=== PATIENT | female | born 1955 | race Caucasian/White ===

== ENCOUNTER 2023-08-31 10:15 | Outpatient (CLI) | payer MEDICARE, SELFPAY ==
--- NOTE | 2023-08-31 10:41 | ECG_ITS ---
Measurements Intervals [place] Rate: 79 P: 47 MI: 190 QRS: 17 QRSD: 90 T: 16 QT: 359 QTc: 413 Interpretive Statements SINUS RHYTHM NO PREVIOUS ECG AVAILABLE FOR COMPARISON Electronically Signed On 08-31-2023 19:56:46 CDT by Theodora Gustafson M.D.
[2023-08-31 11:47] LABS: Anion Gap 7 mmol/L (8-16); Blood Urea Nitrogen 24 mg/dL (7-17); Calcium 9.8 mg/dL (8.4-10.2); Carbon Dioxide 30 mmol/L (22-30); Chloride 101 mmol/L (98-107); Estimated Glomerular Filt Rate > 60; Glucose 118 mg/dL (65-110); Potassium 4.2 mmol/L (3.4-5.0); Sodium 138 mmol/L (137-145)
== END 2023-08-31 10:16 | disposition home or self-care (01) ==
LOC: ANHSURGERY 10:19
PROVIDERS: Anesthesiology; PCP Family Medicine; Visit Provider Urology
DX: R31.9 Hematuria, unspecified (principal); E11.9 Type 2 diabetes mellitus without complications; Z01.818 Encounter for other preprocedural examination
CPT/HCPCS: 36415; 80048; 87086; 93005

== ENCOUNTER 2023-09-07 01:50 | Day surgery (SDC) | payer MEDICARE, SELFPAY ==
[2023-08-27 09:32] VITALS: BMI 29.3
--- NOTE | 2023-08-27 09:42 | PC.NURSE ---
PRE-OP INSTRUCTIONS, PLEASE READ CAREFULLY Report to the Outpatient Waiting Room, entrance under the green pavilion located off [facility], at time _1100_ on date _09/07/23_. Planned Procedure Time: _1 PM_. Time changes happen often and if your time is changed the preop area will call you the afternoon before. - You and your visitor will be asked to self-screen and do not enter if you have any COVID symptoms. - A mask is optional within the hospital at this time. Patients may have clear liquids (water, carbonated beverages, clear teas, apple juice) until 3 hours prior to surgery (1000 AM) with a maximum of 20 ounces. - No food from midnight until time of surgery Take the following medications with a SIP of water the morning of surgery: _AMLODIPINE, LEVOTHYROXINE & 1/2 DOSE OF AM INSULIN_ DO NOT STOP ANY OF YOUR OTHER PRESCRIPTION MEDICATIONS PRIOR TO SURGERY ?EXCEPT THE FOLLOWING Medications to discontinue per DR. POE - ASPIRIN 7 DAYS PRIOR TO SURGERY (PER PATIENT), Date to take last dose 08/30/23_ Please no make-up, nail dominican, hairspray, perfume, deodorant, or body powder the day of surgery. No jewelry (including any body piercings) or valuables the day of surgery, leave them at home. Please take a shower or bath the night before, or the morning of, surgery with an antibacterial soap. Wear comfortable, loose fitting clothing. - Jewelry must be removed prior to entering the operating room. Rings and piercings that are not removed may be cut off. - The hospital will not accept responsibility for valuables. - Please leave all valuables, including medications, at home the day of surgery. If you are going home after surgery, a licensed school bus driver/mechanic must drive you home. - NO public transportation without another adult if you receive anesthesia. - We recommend that an adult stay with you for 24 hours following discharge. - We also recommend that you do not drive, make important decision, drink alcoholic beverages, or take any drugs that were not prescribed by your health care provider for at least 24 hours after your discharge time. Follow any additional instructions given to you from your surgeon. If you or anyone in your household have experienced Covid symptoms in the past week, please notify your surgeon or the nurse liaison at the phone number below for possible testing. Telephone instructions given to _PATIENT_and asked if any additional questions and then verbalized understanding. Patient advised to call surgeon office or pre surgery nurse liaison [phone] if any additional questions.
[2023-09-07] VITALS (11 sets, daily range): BP systolic 85–147; BP diastolic 50–81; PULSE 77–96; RESP 16–23; TEMP 36.7–36.9; O2SAT 89–100
--- NOTE | 2023-09-07 11:09 | WPDHPUPDATE1 ---
History and Physical Update Update Date/Time: 09/07/23 11:09 History and Physical has been reviewed, including an updated exam of the patient. There are NO changes in the patient's condition. Risks, benefits, and alternatives have been discussed and questions answered. Patient agrees to proceed with procedure. Proceed with cystoscopy with bladder biopsy and fulguration
[2023-09-07 11:52] LABS: Glucose Point of Care 144 mg/dl (65-105)
--- NOTE | 2023-09-07 12:54 | WPDANESEPPF ---
Anes - Initial Pre Proc Eval Procedure: Operation Date: 09/07/23 13:00 Proposed Procedures p Cystoscopy Bladder Biopsy - Arcenio Ham MD Date/Time: 09/07/23 12:54 Surgeon: Arcenio Ham MD Pre Op Diagnosis: hematuria, bladder Patient Data Age: 67 Gender: F Height: 1.55 m Weight: 71 kg Last Vital Signs Temp 36.7 C 09/07/23 11:54 Pulse 87 09/07/23 11:54 Resp 16 09/07/23 11:54 BP 141/59 H 09/07/23 11:54 Pulse Ox 100 09/07/23 11:54 O2 Del Method Room Air 09/07/23 11:54 Allergies Allergy/AdvReac Type Severity Reaction Status Date / Time No Known Allergies Allergy Verified 09/07/23 11:52 Home Medications Medication Instructions Recorded Confirmed Type amlodipine 5 mg tablet 5 mg DAILY 08/27/23 09/07/23 History aspirin 81 mg tablet,delayed 81 mg PO DAILY 08/27/23 08/27/23 History release cholecalciferol (vitamin D3) 1 tab-cap DAILY 08/27/23 08/27/23 History cyanocobalamin (vitamin B-12) 1,000 mcg PO DAILY 08/27/23 08/27/23 History 1,000 mcg tablet enalapril maleate 20 mg tablet 20 mg PO DAILY 08/27/23 08/27/23 History esomeprazole magnesium 20 mg 20 mg PO DAILY 08/27/23 08/27/23 History capsule,delayed release (Nexium) hydrochlorothiazide 25 mg tablet 25 mg 3XW 08/27/23 08/27/23 History insulin detemir U-100 100 unit/mL 30 unit subcut BID 08/27/23 09/07/23 History (3 mL) subcutaneous pen (Levemir FlexPen) levothyroxine 112 mcg tablet 112 mcg DAILY 08/27/23 09/07/23 History metformin 1,000 mg tablet 1,000 mg BID 08/27/23 08/27/23 History rosuvastatin 10 mg tablet 10 mg DAILY 08/27/23 08/27/23 History semaglutide 1 mg/dose (4 mg/3 mL) 1 mg subcut WEEKLY 08/27/23 08/27/23 History subcutaneous pen injector (Ozempic) Laboratory Tests 09/07/23 11:41 POC Capillary Glucose 144 H mg/dl (65-105) Patient hx anesthesia problems: none Family hx anesthesia problems: none Results Review: All pre-operative results and documents have been reviewed as part of the pre-operative evaluation. [facility] Social History Social History Smoking status: Never smoker Second hand tobacco smoke exposure: No Alcohol intake: current Drinks per week: 6 Substance use: never Substance use type: does not use Living arrangements: with family Spiritual care concerns: No Anes - Eval Final PreProcedure Day of Procedure 09/07/23 12:54 Patient weight: overweight Heart: regular rate and rhythm Lungs: clear to auscultation Airway: Mallampati scale class II Neurological: alert and oriented Last oral intake: >/= 8 hours ASA classification: III Emergent: no Anesthetic plan: proceed Anesthesia type and monitoring: general LMA and standard monitoring Results Review: All pre-operative results and documents have been reviewed as part of the pre-operative evaluation. Informed Consent: The patient's anesthetic plan and its attendant risks and benefits were discussed with the patient/family/POA. Questions were solicited and answers provided to the satisfaction of the patient/family/POA.
[2023-09-07] MEDS: LACTATED RINGERS 1,000 ML 30 ML IV CONT ×2 (13:00→14:27)
[2023-09-07] MEDS: SCOPOLAMINE 1.5 MG PATCH TRANSDERM (13:01)
[2023-09-07] MEDS: MIDAZOLAM HCL (*CRX) 2 MG/2 ML VIAL IV PUSH (13:01)
[2023-09-07] MEDS: ceFAZolin 2 GM/D5W 50 ML 2 GM/50 ML BAG IVPB (13:48)
[2023-09-07] MEDS: LIDOCAINE HCL 2% GEL UROJET 10 ML PKG MUCOUS MEM (14:19)
--- NOTE | 2023-09-07 14:24 | P.OP_ITS ---
Procedure Note - Detailed Date of Procedure 09/07/23 Pre-op Diagnosis hematuria, bladder Post-op Diagnosis Same Procedure Performed Cystoscopy with bladder biopsy and fulguration Surgeon Arcenio Ham MD Anesthesia General Findings Diffuse erythema and friability throughout the entire bladder Description of Procedure Patient is taken the operative suite correctly identified. Once anesthesia was obtained she was placed in dorsal lithotomy position and prepped draped usual sterile fashion. Twenty-two Palauan scope was inserted the bladder. There was diffuse erythema throughout. I biopsied 2 distinct areas. One on the right lateral wall 1 on the right posterior wall. It was very friable and oozy. We used the Bugbee electrode to fulgurate the area. There appeared to be good hemostasis at termination of procedure. Bladder was drained. 2% viscous lidocaine was inserted into the urethra. Patient is taken recovery stable condition. She is instructed to call for path results in 1 week. This completes dictation on this patient. Please send a copy of op note to my office Estimated Blood Loss 10 Drains No Packing No Pathology Yes Complications No immediate complications Condition Stable Disposition PACU
[2023-09-07 15:21] LABS: Glucose Point of Care 82 mg/dl (65-105)
[2023-09-07] MEDS: oxyCODONE HCL (*CRX) 5 MG TAB IR PO (16:17)
== END 2023-09-07 16:50 | disposition home or self-care (01) ==
PROVIDERS: PCP Family Medicine; Visit Provider Urology
PROC: 0TBB8ZX Excision of Bladder, Via Natural or Artificial Opening Endoscopic, Diagnostic (ICD-10-PCS; CPT 52204; principal; 2023-09-07 13:00)
DX: N30.00 Acute cystitis without hematuria (principal); N30.20 Other chronic cystitis without hematuria; I10 Essential (primary) hypertension; E78.5 Hyperlipidemia, unspecified; E11.9 Type 2 diabetes mellitus without complications; Z79.82 Long term (current) use of aspirin; Z79.4 Long term (current) use of insulin; Z79.84 Long term (current) use of oral hypoglycemic drugs; Z79.85 Long-term (current) use of injectable non-insulin antidiabetic drugs
CPT/HCPCS: 52204; 36415; 80048; 82948; 87086; 88305; 93005; A9270; J0690; J1100; J2250; J2371; J2405; J2704; J3010; J7120

== ENCOUNTER 2024-01-14 00:25 | Day surgery (SDC) | payer MEDICARE, SELFPAY ==
--- NOTE | 2024-01-06 15:06 | PC.NURSE ---
Report to the Outpatient Waiting Room, entrance under the green pavilion located off [facility], at time _0830 on date __01/14/24 . Planned Procedure Time: __1030 . Time changes happen often and if your time is changed the preop area will call you the afternoon before. - You and your visitor will be asked to self-screen and do not enter if you have any COVID symptoms. - A mask is optional within the hospital at this time. Patients may have clear liquids (water, carbonated beverages, clear teas, apple juice) until 3 hours prior to surgery with a maximum of 20 ounces. - No food from midnight until time of surgery - Infants may have breast milk until 4 hours before surgery, formula 6 hours prior to surgery. - Children will be allowed to drink immediately following surgery. If applicable, please bring a bottle or sippy cup to assist with drinking. Juice, water, soda, and popsicles are readily available. For infants on formula, please bring formula the day of surgery. Pacifiers are allowed. Take the following medications with a SIP of water the morning of surgery: _AMLODIPINE,LEVOTHYROXINE DO NOT STOP ANY OF YOUR OTHER PRESCRIPTION MEDICATIONS PRIOR TO SURGERY ?EXCEPT THE FOLLOWING Medications to discontinue per physician __ALL VITAMINS AND SUPPLEMENTS 3 DAYS PRE OP LAST DOSE 01/10/24 HOLD ASPIRIN 7 DAYS PRE OP PER DR MEYER LAST DOSE _PER PATIENT WAS 2 WKS AGO Please no make-up, nail malay, hairspray, perfume, deodorant, or body powder the day of surgery. No jewelry (including any body piercings) or valuables the day of surgery, leave them at home. Please take a shower or bath the night before, or the morning of, surgery with an antibacterial soap. Wear comfortable, loose fitting clothing. Children are encouraged to wear pajamas. - Jewelry must be removed prior to entering the operating room. Rings and piercings that are not removed may be cut off. - The hospital will not accept responsibility for valuables. - Please leave all valuables, including medications, at home the day of surgery. If you are going home after surgery, a licensed oil transport driver must drive you home. - NO public transportation without another adult if you receive anesthesia. - We recommend that an adult stay with you for 24 hours following discharge. - We also recommend that you do not drive, make important decision, drink alcoholic beverages, or take any drugs that were not prescribed by your health care provider for at least 24 hours after your discharge time. Follow any additional instructions given to you from your surgeon. If you or anyone in your household have experienced Covid symptoms in the past week, please notify your surgeon or the nurse liaison at the phone number below for possible testing. Telephone instructions given to ___PATIENT and asked if any additional questions and then verbalized understanding. Patient advised to call surgeon office or pre surgery nurse liaison [phone] if any additional questions.
[2024-01-06 15:16] VITALS: BMI 31.1
--- NOTE | 2024-01-09 17:26 | PM.IMHP ---
H&P: HPI History of Present Illness Date/Time: 01/09/24 17:26 Chief Complaint: Hunner's ulcer Narrative: previous cystoscopy report looks consistent with Hunner's ulceration. Symptoms consistent with the same. Declines office cystoscopy. Presents for cystoscopy, bladder biopsy, steroid injection Review of Systems Review of Systems: All systems reviewed & are unremarkable except as noted in HPI and below PMFSH Social History Social History Smoking status: Never smoker Second hand tobacco smoke exposure: No Alcohol intake: current Drinks per week: 3 Substance use: never Substance use type: does not use Living arrangements: with family Spiritual care concerns: No Meds Home Medications and Allergies Home Medications Medication Instructions Recorded Confirmed Type amlodipine 5 mg tablet 5 mg PO DAILY 08/27/23 01/06/24 History aspirin 81 mg tablet,delayed 81 mg PO DAILY 08/27/23 01/06/24 History release cholecalciferol (vitamin D3) 1 tab-cap PO DAILY 08/27/23 01/06/24 History cyanocobalamin (vitamin B-12) 1,000 mcg PO DAILY 08/27/23 01/06/24 History 1,000 mcg tablet enalapril maleate 20 mg tablet 20 mg PO DAILY 08/27/23 01/06/24 History esomeprazole magnesium 20 mg 20 mg PO DAILY 08/27/23 01/06/24 History capsule,delayed release (Nexium) hydrochlorothiazide 25 mg tablet 25 mg PO 3XW 08/27/23 01/06/24 History insulin detemir U-100 100 unit/mL 30 unit subcut BID 08/27/23 01/06/24 History (3 mL) subcutaneous pen (Levemir FlexPen) levothyroxine 112 mcg tablet 112 mcg PO DAILY 08/27/23 01/06/24 History metformin 1,000 mg tablet 1,000 mg PO BID 08/27/23 01/06/24 History rosuvastatin 10 mg tablet 10 mg PO DAILY 08/27/23 01/06/24 History gabapentin 300 mg capsule 300 mg PO HS 01/06/24 01/06/24 History tirzepatide 7.5 mg/0.5 mL 7.5 mg subcut WEEKLY 01/06/24 01/06/24 History subcutaneous pen injector (Mounjaro) Allergies Allergy/AdvReac Type Severity Reaction Status Date / Time No Known Allergies Allergy Verified 01/06/24 14:53 Exam Narrative: no acute distress normal breathing alert oriented x3 Assessment and Plan Assessment and plan (1) 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 Understands risks of bleeding, infection, lack of efficacy. Understands ulcer may not be present
--- NOTE | 2024-01-13 13:14 | WPDANESEPPF ---
Anes - Initial Pre Proc Eval Procedure: Operation Date: 01/14/24 10:30 Proposed Procedures p Cystoscopy, Bladder Biopsy with Steroid Injection - Kimani Hoyt MD Date/Time: 01/13/24 13:14 Surgeon: Kimani Hoyt MD Pre Op Diagnosis: overactive bladder Patient Data Age: 68 Gender: F Height: 1.55 m Weight: 74.85 kg Allergies Allergy/AdvReac Type Severity Reaction Status Date / Time No Known Allergies Allergy Verified 01/06/24 14:53 Home Medications Medication Instructions Recorded Confirmed Type amlodipine 5 mg tablet 5 mg PO DAILY 08/27/23 01/06/24 History aspirin 81 mg tablet,delayed 81 mg PO DAILY 08/27/23 01/06/24 History release cholecalciferol (vitamin D3) 1 tab-cap PO DAILY 08/27/23 01/06/24 History cyanocobalamin (vitamin B-12) 1,000 mcg PO DAILY 08/27/23 01/06/24 History 1,000 mcg tablet enalapril maleate 20 mg tablet 20 mg PO DAILY 08/27/23 01/06/24 History esomeprazole magnesium 20 mg 20 mg PO DAILY 08/27/23 01/06/24 History capsule,delayed release (Nexium) hydrochlorothiazide 25 mg tablet 25 mg PO 3XW 08/27/23 01/06/24 History insulin detemir U-100 100 unit/mL 30 unit subcut BID 08/27/23 01/06/24 History (3 mL) subcutaneous pen (Levemir FlexPen) levothyroxine 112 mcg tablet 112 mcg PO DAILY 08/27/23 01/06/24 History metformin 1,000 mg tablet 1,000 mg PO BID 08/27/23 01/06/24 History rosuvastatin 10 mg tablet 10 mg PO DAILY 08/27/23 01/06/24 History gabapentin 300 mg capsule 300 mg PO HS 01/06/24 01/06/24 History tirzepatide 7.5 mg/0.5 mL 7.5 mg subcut WEEKLY 01/06/24 01/06/24 History subcutaneous pen injector (Mounjaro) phenazopyridine 200 mg tablet 200 mg PO TID PRN pain 6 doses #15 01/14/24 Rx (Pyridium) tabs tramadol 50 mg tablet 50 mg PO Q6H PRN pain #20 tabs 01/14/24 Rx Patient hx anesthesia problems: none Family hx anesthesia problems: none Results Review: All pre-operative results and documents have been reviewed as part of the pre-operative evaluation. [facility], [facility] Past Medical History Medical History (Updated 01/13/24 @ 13:15 by Cory Zavala DO) Diabetes type 2, controlled Hyperlipidemia Hypertension Hypothyroidism Osteoarthritis PONV (postoperative nausea and vomiting) Surgical History Surgical History (Updated 01/13/24 @ 13:15 by Cory Zavala DO) History of History of cholecystectomy Social History Social History Smoking status: Never smoker Second hand tobacco smoke exposure: No Alcohol intake: current Drinks per week: 3 Substance use: never Substance use type: does not use Living arrangements: with family Spiritual care concerns: No Anes - Eval Final PreProcedure Day of Procedure 01/13/24 13:14 Patient weight: obese Heart: regular rate and rhythm Lungs: clear to auscultation Airway: Mallampati scale class 1 Neurological: alert and oriented Last oral intake: >/= 8 hours ASA classification: III Emergent: no Anesthetic plan: proceed Anesthesia type and monitoring: general GIVS and standard monitoring Results Review: All pre-operative results and documents have been reviewed as part of the pre-operative evaluation. Informed Consent: The patient's anesthetic plan and its attendant risks and benefits were discussed with the patient/family/POA. Questions were solicited and answers provided to the satisfaction of the patient/family/POA.
--- NOTE | 2024-01-14 04:38 | WPDHPUPDATE1 ---
History and Physical Update Update Date/Time: 01/14/24 04:38 History and Physical has been reviewed, including an updated exam of the patient. There are NO changes in the patient's condition. Risks, benefits, and alternatives have been discussed and questions answered. Patient agrees to proceed with procedure.
[2024-01-14] MEDS: LACTATED RINGERS 1,000 ML 30 ML IV CONT (09:00)
[2024-01-14 09:15] VITALS: BP 134/60; PULSE 86; RESP 16; TEMP 36.3; O2SAT 100
[2024-01-14 09:29] LABS: Glucose Point of Care 92 mg/dl (65-105)
[2024-01-14] MEDS: ceFAZolin 2 GM/D5W 50 ML 2 GM/50 ML BAG IVPB (10:10)
[2024-01-14] MEDS: TRIAMCINOLONE ACET INJ 40 MG/ML VIAL 200 MG IM (10:18)
--- NOTE | 2024-01-14 10:22 | W.PM.PROC2 ---
Procedure Note - Detailed Date of Procedure 01/14/24 Pre-op Diagnosis Hunner's ulcerations Post-op Diagnosis Same Procedure Performed Cystoscopy, bladder biopsy, injection of steroid Surgeon Kimani Hoyt MD Anesthesia MAC and Local (Lidocaine jelly) Indications She has history of bladder inflammation and pain. Previous biopsies have shown chronic cystitis and inflammation. She is here today for a steroid injection because she has recurrent symptoms. She understands risks of bleeding, infection, damage to bladder, damage to the urinary tract, lack of efficacy. She agrees to proceed Findings Inflamed bladder consistent with ulceration Description of Procedure She is correctly identified. Informed consent obtained. From the operating room. She was given monitored anesthesia care. She is placed in dorsal thigh position. She was prepped and draped in sterile fashion. Time-out performed. Cystoscopy revealed an abnormal bladder with mild trabeculations. She had a intense inflammation the lateral monahan and floor. The inflammation was away from the trigone. Ureteral orifices were seen and preserved. I biopsied 1 of these areas. I fulgurated the lesion. I then injected steroids. 200 mg of Kenalog. 5 mg per mil. I injected this into the inflamed areas. There was minimal bleeding from the injection sites. Her bladder was examined under low insufflation pressure. There was no active bleeding. Her bladder was drained. She was awakened transferred to PACU in stable condition. Estimated Blood Loss 1 Pathology Yes (Bladder biopsy) Complications No immediate complications Condition Stable Disposition PACU
[2024-01-14 10:30] VITALS: BP 108/48; PULSE 87; RESP 16; O2SAT 95
[2024-01-14 11:00] VITALS: BP 133/59; PULSE 87; RESP 16
[2024-01-14 11:12] LABS: Glucose Point of Care 99 mg/dl (65-105)
== END 2024-01-14 11:30 | disposition home or self-care (01) ==
PROVIDERS: PCP Family Medicine; Visit Provider Urology
PROC: 0TBB8ZX Excision of Bladder, Via Natural or Artificial Opening Endoscopic, Diagnostic (ICD-10-PCS; CPT 52204; principal; 2024-01-14 10:30)
DX: N30.10 Interstitial cystitis (chronic) without hematuria (principal); E11.9 Type 2 diabetes mellitus without complications; E78.5 Hyperlipidemia, unspecified; I10 Essential (primary) hypertension; E03.9 Hypothyroidism, unspecified; E66.9 Obesity, unspecified; Z68.30 Body mass index [BMI] 30.0-30.9, adult; Z79.82 Long term (current) use of aspirin; Z79.4 Long term (current) use of insulin; Z79.85 Long-term (current) use of injectable non-insulin antidiabetic drugs; Z79.84 Long term (current) use of oral hypoglycemic drugs
CPT/HCPCS: 52283; 82948; 88305; J0690; J1100; J2250; J2405; J2704; J3010; J3301; J7120